=== PATIENT | female | born 1995 | race Caucasian/White ===

== ENCOUNTER 2017-11-01 09:27 | Emergency (ER) | payer OTHER ==
[~2017-11-01] VITALS: Ht 160 cm; Wt 81.8 kg
[2017-11-01 09:59] LABS: COLLECTION METHOD CATHETER
[2017-11-01 10:04] LABS: BASO % 0.2 % (0.0-2.0); EOS % 0.3 % (0-4.0); GRAN # 9.5 (1.4-6.5); HEMATOCRIT 37.1 % (37.0-47.0); HEMOGLOBIN 12.4 g/dl (12.5-16.0); LYMPH # 1.2 (1.2-3.4); LYMPH % 10.4 % (20.0-51.0); MEAN CELL VOLUME 84 fl (80.0-100.0); MEAN CORPUSCULAR HEMOGLOBIN 28 pg (27.0-31.0); MEAN CORPUSCULAR HGB CONC 33 g/dl (33.0-37.0); MEAN PLATELET VOLUME 9.6 fl (7.4-10.4); MONO # 0.7 (0.1-0.6); MONO % 5.8 % (1.7-9.3); PLATELET COUNT 283 K/mm3 (130-400); RED BLOOD COUNT 4.41 M/mm3 (4.10-5.30); REDCELL DISTRIBUTION WIDTH-CV 12.1 % (11.5-14.5)
[2017-11-01 10:05] LABS: PH 5 (5-8); SQUAMOUS EPITHELIAL 0-2 /hpf; URINE APPEARANCE Clear; URINE BACTERIA None Seen /hpf; URINE BILIRUBIN Negative (NEGATIVE); URINE BLOOD Negative (NEGATIVE); URINE COLOR Yellow; URINE GLUCOSE Negative (NEGATIVE); URINE KETONE Negative (NEGATIVE); URINE LEUKOCYTE ESTERASE 1+ (NEGATIVE); URINE NITRATE Negative (NEGATIVE); URINE PROTEIN(semi-quant) Negative (NEGATIVE); URINE RBC 0-2 /hpf
[2017-11-01 10:26] LABS: ALBUMIN 4.3 gm/dL (3.5-5.0); BILIRUBIN,TOTAL 0.4 mg/dL (0.0-1.0); CALCIUM 9.1 mg/dL (8.4-10.2); CREATININE, serum 0.62 mg/dL (0.52-1.25); POTASSIUM 3.8 mmol/L (3.4-5.0); TOTAL PROTEIN 7.7 gm/dL (6.4-8.2)
[2017-11-01 11:20] VITALS: BP 115/79; PULSE 91; TEMP 96.9
== END 2017-11-01 11:29 | disposition home or self-care (01) ==
LOC: COL.ER 09:27
PROVIDERS: Family Medicine
DX: O26.891 Other specified pregnancy related conditions, first trimester (principal); R55 Syncope and collapse; E86.0 Dehydration; Z3A.00 Weeks of gestation of pregnancy not specified
CPT/HCPCS: J7030

== ENCOUNTER 2017-11-25 13:08 | Emergency (ER) | payer OTHER ==
[~2017-11-25] VITALS: Ht 157.5 cm; Wt 84.1 kg
[2017-11-25 13:13] VITALS: TEMP 98.6
[2017-11-25 13:40] LABS: COLLECTION METHOD CLEAN CATCH
[2017-11-25 13:43] LABS: BASO % 0.3 % (0.0-2.0); EOS # 0.1 (0.0-0.7); EOS % 0.7 % (0-4.0); GRAN # 4.6 (1.4-6.5); GRAN % 63.6 % (42.2-75.2); HEMATOCRIT 36.8 % (37.0-47.0); HEMOGLOBIN 12.3 g/dl (12.5-16.0); LYMPH % 28.4 % (20.0-51.0); MEAN CELL VOLUME 83 fl (80.0-100.0); MEAN CORPUSCULAR HEMOGLOBIN 28 pg (27.0-31.0); MEAN CORPUSCULAR HGB CONC 33 g/dl (33.0-37.0); MEAN PLATELET VOLUME 9.6 fl (7.4-10.4); MONO # 0.5 (0.1-0.6); MONO % 6.6 % (1.7-9.3); PLATELET COUNT 298 K/mm3 (130-400); RED BLOOD COUNT 4.46 M/mm3 (4.10-5.30); REDCELL DISTRIBUTION WIDTH-CV 12.2 % (11.5-14.5)
[2017-11-25] MEDS ORDERED: SE TAN PLUS PO (13:47)
[2017-11-25 13:48] LABS: MUCOUS Present /lpf; PH 5 (5-8); URINE APPEARANCE Cloudy; URINE BACTERIA Rare /hpf; URINE BILIRUBIN Negative (NEGATIVE); URINE BLOOD Negative (NEGATIVE); URINE COLOR Yellow; URINE GLUCOSE Negative (NEGATIVE); URINE KETONE Negative (NEGATIVE); URINE LEUKOCYTE ESTERASE 3+ (NEGATIVE); URINE NITRATE Negative (NEGATIVE); URINE PROTEIN(semi-quant) Negative (NEGATIVE)
[2017-11-25 13:59] LABS: ALBUMIN 4.4 gm/dL (3.5-5.0); BILIRUBIN,TOTAL 0.3 mg/dL (0.0-1.0); CALCIUM 9.3 mg/dL (8.4-10.2); CREATININE, serum 0.54 mg/dL (0.52-1.25); POTASSIUM 3.6 mmol/L (3.4-5.0); TOTAL PROTEIN 7.8 gm/dL (6.4-8.2)
[2017-11-25] MEDS ORDERED: VITAMIN B650 MG PO (14:45)
[2017-11-25] MEDS ORDERED: ZOFRAN ODT4 MG PO (14:45)
[2017-11-25] MEDS ORDERED: UNISOM25 MG PO (14:45)
[2017-11-25 15:00] VITALS: BP 116/65; PULSE 79
== END 2017-11-25 15:01 | disposition home or self-care (01) ==
LOC: COL.ER 13:08
PROVIDERS: Emergency Medicine
DX: O21.9 Vomiting of pregnancy, unspecified (principal); Z3A.01 Less than 8 weeks gestation of pregnancy
CPT/HCPCS: J2405; J2765; J7030

== ENCOUNTER 2018-01-20 18:39 | Emergency (ER) | payer OTHER, MEDICAID ==
[~2018-01-20] VITALS: Ht 157.5 cm; Wt 77.3 kg
[~2018-01-20 18:39] MED LIST: SE TAN PLUS PO; UNISOM25 MG PO; VITAMIN B650 MG PO; ZOFRAN ODT4 MG PO
[2018-01-20 18:44] VITALS: BP 137/75; TEMP 97.7
[2018-01-20 19:27] LABS: COLLECTION METHOD CLEAN CATCH
[2018-01-20 19:35] LABS: MUCOUS Present /lpf; PH 5 (5-8); URINE APPEARANCE Hazy; URINE BACTERIA Rare /hpf; URINE BILIRUBIN Negative (NEGATIVE); URINE BLOOD Negative (NEGATIVE); URINE COLOR Yellow; URINE GLUCOSE Negative (NEGATIVE); URINE KETONE Trace (NEGATIVE); URINE LEUKOCYTE ESTERASE Trace (NEGATIVE); URINE NITRATE Negative (NEGATIVE); URINE PROTEIN(semi-quant) 1+ (NEGATIVE); URINE UROBILINOGEN >=4.0 mg/dL (NEGATIVE)
[2018-01-20 19:49] LABS: BASO % 0.3 % (0.0-2.0); EOS % 0.4 % (0-4.0); GRAN % 68.9 % (42.2-75.2); HEMOGLOBIN 12.2 g/dl (12.5-16.0); LYMPH # 1.7 (1.2-3.4); LYMPH % 24.2 % (20.0-51.0); MEAN CELL VOLUME 83 fl (80.0-100.0); MEAN CORPUSCULAR HEMOGLOBIN 28 pg (27.0-31.0); MEAN CORPUSCULAR HGB CONC 33 g/dl (33.0-37.0); MEAN PLATELET VOLUME 10.2 fl (7.4-10.4); MONO # 0.4 (0.1-0.6); MONO % 5.8 % (1.7-9.3); PLATELET COUNT 236 K/mm3 (130-400); RED BLOOD COUNT 4.39 M/mm3 (4.10-5.30); REDCELL DISTRIBUTION WIDTH-CV 12.1 % (11.5-14.5)
[2018-01-20 19:53] LABS: HEMATOCRIT 36.6 % (37.0-47.0)
[2018-01-20 20:00] LABS: ALBUMIN 4.3 gm/dL (3.5-5.0); BILIRUBIN,TOTAL 0.5 mg/dL (0.0-1.0); CALCIUM 9.5 mg/dL (8.4-10.2); CREATININE, serum 0.45 mg/dL (0.52-1.25); POTASSIUM 3.6 mmol/L (3.4-5.0); TOTAL PROTEIN 7.9 gm/dL (6.4-8.2)
[2018-01-20] MEDS ORDERED: NORCO 325 MG-51 TAB PO (20:44)
[2018-01-20 21:15] VITALS: PULSE 63
== END 2018-01-20 21:15 | disposition home or self-care (01) ==
LOC: COL.ER 18:39
PROVIDERS: Emergency Medicine
DX: O26.892 Other specified pregnancy related conditions, second trimester (principal); O9A.212 Injury, poisoning and certain other consequences of external causes complicating pregnancy, second trimester; S20.219A Contusion of unspecified front wall of thorax, initial encounter; S39.011A Strain of muscle, fascia and tendon of abdomen, initial encounter; Z3A.15 15 weeks gestation of pregnancy; Z98.890 Other specified postprocedural states
CPT/HCPCS: A9284; J2270; J2405; J7030

== ENCOUNTER 2018-01-27 16:24 | Emergency (ER) | payer OTHER, MEDICAID ==
[~2018-01-27] VITALS: Ht 157.5 cm; Wt 81.8 kg
[~2018-01-27 16:24] MED LIST changes: +NORCO 325 MG-51 TAB PO
[2018-01-27 16:26] VITALS: TEMP 97.9
[2018-01-27 16:53] LABS: COLLECTION METHOD CLEAN CATCH
[2018-01-27 17:03] LABS: MUCOUS Present /lpf; PH 6 (5-8); URINE APPEARANCE Hazy; URINE BACTERIA Rare /hpf; URINE BILIRUBIN Negative (NEGATIVE); URINE BLOOD Negative (NEGATIVE); URINE COLOR Yellow; URINE GLUCOSE Negative (NEGATIVE); URINE KETONE Negative (NEGATIVE); URINE LEUKOCYTE ESTERASE Negative (NEGATIVE); URINE NITRATE Negative (NEGATIVE); URINE PROTEIN(semi-quant) Negative (NEGATIVE); URINE RBC 0-2 /hpf
[2018-01-27 17:34] LABS: BASO % 0.3 % (0.0-2.0); EOS % 0.4 % (0-4.0); GRAN % 65.5 % (42.2-75.2); HEMOGLOBIN 11.6 g/dl (12.5-16.0); LYMPH % 25.7 % (20.0-51.0); MEAN CELL VOLUME 83 fl (80.0-100.0); MEAN CORPUSCULAR HEMOGLOBIN 28 pg (27.0-31.0); MEAN CORPUSCULAR HGB CONC 34 g/dl (33.0-37.0); MEAN PLATELET VOLUME 10.2 fl (7.4-10.4); MONO # 0.6 (0.1-0.6); MONO % 7.7 % (1.7-9.3); PLATELET COUNT 243 K/mm3 (130-400); RED BLOOD COUNT 4.12 M/mm3 (4.10-5.30); REDCELL DISTRIBUTION WIDTH-CV 12.3 % (11.5-14.5)
[2018-01-27 17:35] LABS: HEMATOCRIT 34.2 % (37.0-47.0)
[2018-01-27 17:44] LABS: ALBUMIN 4.1 gm/dL (3.5-5.0); BILIRUBIN,TOTAL 0.2 mg/dL (0.0-1.0); CALCIUM 9.2 mg/dL (8.4-10.2); CREATININE, serum 0.41 mg/dL (0.52-1.25); TOTAL PROTEIN 7.3 gm/dL (6.4-8.2)
[2018-01-27 18:14] VITALS: BP 107/59; PULSE 69
== END 2018-01-27 18:14 | disposition home or self-care (01) ==
LOC: COL.ER 16:24
PROVIDERS: Family Medicine
DX: O46.92 Antepartum hemorrhage, unspecified, second trimester (principal); O26.892 Other specified pregnancy related conditions, second trimester; R10.9 Unspecified abdominal pain; Z3A.16 16 weeks gestation of pregnancy
CPT/HCPCS: J7030

== ENCOUNTER 2018-01-31 08:31 | Emergency (ER) | payer OTHER, MEDICAID ==
[~2018-01-31] VITALS: Ht 157.5 cm; Wt 83.6 kg
[2018-01-31 08:35] VITALS: TEMP 98.4
[2018-01-31 09:08] LABS: COLLECTION METHOD CLEAN CATCH
[2018-01-31 09:13] LABS: MUCOUS Present /lpf; PH 8 (5-8); URINE APPEARANCE Clear; URINE BACTERIA Occasional /hpf; URINE BILIRUBIN Negative (NEGATIVE); URINE BLOOD Negative (NEGATIVE); URINE COLOR Yellow; URINE GLUCOSE Negative (NEGATIVE); URINE KETONE Negative (NEGATIVE); URINE LEUKOCYTE ESTERASE Trace (NEGATIVE); URINE NITRATE Negative (NEGATIVE); URINE PROTEIN(semi-quant) Negative (NEGATIVE); URINE RBC None Seen /hpf; URINE UROBILINOGEN Negative (NEGATIVE)
[2018-01-31 09:26] LABS: BASO % 0.3 % (0.0-2.0); EOS % 0.5 % (0-4.0); GRAN # 4.4 (1.4-6.5); GRAN % 71.5 % (42.2-75.2); HEMOGLOBIN 11.6 g/dl (12.5-16.0); LYMPH # 1.4 (1.2-3.4); LYMPH % 21.9 % (20.0-51.0); MEAN CELL VOLUME 84 fl (80.0-100.0); MEAN CORPUSCULAR HEMOGLOBIN 28 pg (27.0-31.0); MEAN CORPUSCULAR HGB CONC 34 g/dl (33.0-37.0); MONO # 0.3 (0.1-0.6); MONO % 5.5 % (1.7-9.3); PLATELET COUNT 230 K/mm3 (130-400); RED BLOOD COUNT 4.08 M/mm3 (4.10-5.30); REDCELL DISTRIBUTION WIDTH-CV 12.5 % (11.5-14.5)
[2018-01-31 09:36] LABS: ALBUMIN 4.1 gm/dL (3.5-5.0); BILIRUBIN,TOTAL 0.3 mg/dL (0.0-1.0); CALCIUM 9.3 mg/dL (8.4-10.2); CREATININE, serum 0.44 mg/dL (0.52-1.25); HEMATOCRIT 34.1 % (37.0-47.0); POTASSIUM 3.8 mmol/L (3.4-5.0); TOTAL PROTEIN 7.1 gm/dL (6.4-8.2)
[2018-01-31] MEDS ORDERED: IRON TABLETS325 MG PO (10:14)
[2018-01-31 12:28] VITALS: BP 107/56; PULSE 68
== END 2018-01-31 12:27 | disposition home or self-care (01) ==
LOC: COL.ER 08:31
PROVIDERS: Emergency Medicine; Nurse Practitioner Primary Care
DX: O26.892 Other specified pregnancy related conditions, second trimester (principal); M54.5 Low back pain; Z3A.16 16 weeks gestation of pregnancy; Z98.890 Other specified postprocedural states
CPT/HCPCS: J2405; J7030

== ENCOUNTER 2018-03-31 14:38 | Outpatient (CLI) | payer OTHER, MEDICAID ==
[~2018-03-31] VITALS: Ht 160 cm; Wt 82.3 kg
[2018-03-31 15:08] VITALS: BP 118/60; PULSE 78; TEMP 97.7
== END 2018-03-31 15:10 | disposition home or self-care (01) ==
LOC: LDRO 14:38
DX: O36.8120 Decreased fetal movements, second trimester, not applicable or unspecified (principal); Z3A.25 25 weeks gestation of pregnancy

== ENCOUNTER → 2018-03-31 | Emergency (ER) | payer OTHER, MEDICAID ==
[~2018-03-31] MED LIST changes: +IRON TABLETS325 MG PO
== END ==
LOC: COL.ER 14:30
DX: Z72.9 Problem related to lifestyle, unspecified (principal)

== ENCOUNTER 2018-04-23 20:32 | Outpatient (CLI) | payer OTHER, MEDICAID ==
[~2018-04-23] VITALS: Ht 160 cm; Wt 85.9 kg
--- NOTE | 2018-04-23 20:40 | NUR ---
G1 28 weeks 3 days arrives to unit ambulatory with complaint of decreased movement and cramping in back. Pt reports she hasn't really felt baby move since midnight last night. Reports cramping in her back that comes and goes and sometimes wraps around to her abdomen. Pt denies vaginal bleeding or LOF. Pt changed into clean gown. Oriented to room. EFM and toco explained and applied. Vital signs obtained. Admission assessment started.
[2018-04-23 21:00] VITALS: BP 114/64; PULSE 77; TEMP 98.8
--- NOTE | 2018-04-23 21:00 | NUR ---
SVE closed/thick/high. Pt repositioned to high fowlers for comfort. Discussed kick counts and really focusing on feeling baby move.
--- NOTE | 2018-04-23 21:15 | NUR ---
Pt reports feeling movement she just feels it in a different spot now.
[2018-04-23 21:30] VITALS: BP 115/64; PULSE 72
[2018-04-23 21:36] LABS: COLLECTION METHOD CLEAN CATCH
[2018-04-23 21:42] LABS: MUCOUS Present /lpf; PH 6 (5-8); SQUAMOUS EPITHELIAL 0-2 /hpf; URINE APPEARANCE Clear; URINE BACTERIA Rare /hpf; URINE BILIRUBIN Negative (NEGATIVE); URINE BLOOD Negative (NEGATIVE); URINE COLOR Yellow; URINE GLUCOSE Negative (NEGATIVE); URINE KETONE Negative (NEGATIVE); URINE LEUKOCYTE ESTERASE Negative (NEGATIVE); URINE NITRATE Negative (NEGATIVE); URINE PROTEIN(semi-quant) Negative (NEGATIVE); URINE RBC 0-2 /hpf; URINE UROBILINOGEN Negative (NEGATIVE); URINE WBC 0-2 /hpf
[2018-04-23 22:00] VITALS: BP 110/59; PULSE 71
--- NOTE | 2018-04-23 22:00 | NUR ---
Pt has felt baby move multiple times since getting here. Feels comfortable going home at this point. Dr. Mendosa ok to discharge, see physician notification. Discharge instructions and return precautions reviewed with patient, pt verbalized understanding. Pt seen ambulating off unit with significant other.
== END 2018-04-23 22:00 | disposition home or self-care (01) ==
LOC: LDRO 20:32
PROVIDERS: Obstetrics & Gynecology
DX: O36.8130 Decreased fetal movements, third trimester, not applicable or unspecified (principal); Z3A.28 28 weeks gestation of pregnancy

== ENCOUNTER 2018-05-20 13:00 | Outpatient (CLI) | payer OTHER, MEDICAID ==
[~2018-05-20] VITALS: Ht 160 cm; Wt 89.5 kg
--- NOTE | 2018-05-20 13:00 | NUR ---
Patient arrives ambulatory with FOB with complaints of a fall at 1000 this morning. Patient states she slipped on ice and hit the right side of her abdomen on a stair outside. Patient states she noticed some "light spotting for 45 minutes after but it's gone now". Patient reports vaginal pressure but no cramping or contractions. Reports normal movement. Changes into gown, EFM explained and placed. VSS. SVE by this RN closed/thick/high. No spotting noted on exam. Patient repositioned WL. Assessment completed. notified, reviewed patient complaint and assessment. Reviewed SVE, FHR strip/ctx pattern so far, and vitals. Orders to monitor patient over two hours and update physician at that time. No further orders.
[2018-05-20 14:00] VITALS: BP 123/71; PULSE 73; TEMP 98
[2018-05-20 14:42] VITALS: BP 105/56; PULSE 72
--- NOTE | 2018-05-20 14:49 | NUR ---
1450- Patient given discharge instructions. Reviewed labor precautions and kick counts. Patient denies questions and leaves ambulatory.
== END 2018-05-20 14:50 | disposition home or self-care (01) ==
LOC: LDRO 13:00 → LDR 13:00 → LDRO 14:50
DX: O26.893 Other specified pregnancy related conditions, third trimester (principal); W19.XXXA Unspecified fall, initial encounter; Z3A.32 32 weeks gestation of pregnancy
CPT/HCPCS: OP

== ENCOUNTER 2018-06-16 08:37 | Outpatient (CLI) | payer OTHER, MEDICAID ==
--- NOTE | 2018-06-16 08:40 | NUR ---
Presents to labor and delivery. States hasnt felt baby since yesterday at 4 p.m. heart monitor on, heart rate 122. Denies contractions. Assessment done, questions offered and answered.
[2018-06-16 08:50] VITALS: BP 124/79; PULSE 73; TEMP 98
--- NOTE | 2018-06-16 09:55 | NUR ---
Discharge instructions given, verbalizes understanding. Dismissed to home with significant other, alert, ambulatory, stable.
== END 2018-06-16 09:55 | disposition home or self-care (01) ==
LOC: LDRO 08:37
DX: O36.8130 Decreased fetal movements, third trimester, not applicable or unspecified (principal); Z3A.36 36 weeks gestation of pregnancy

== ENCOUNTER 2018-07-13 09:32 | Inpatient (IN) | payer OTHER, MEDICAID ==
[2018-07-13] VITALS (50 sets, daily range): BP systolic 108–154; BP diastolic 55–85; PULSE 62–105; TEMP 97.8–98.9
[~2018-07-13] VITALS: Ht 157.5 cm; Wt 92.3 kg
--- NOTE | 2018-07-13 09:35 | NUR ---
Pt arrives on unit ambulatory for possible SROM at 0700. G1L0 at 40.0 weeks gestation. Changed into clean gown. EFM and toco applied. Denies vaginal bleeding, regular contractions and reports GFM. SVE per Arik Gavin RN / with light meconium fluid. Admission assessment completed. Dr. Mccartney notified. Orders to start pitocin. Pt updated on POC. Call light within reach. Bed locked in low position.
--- NOTE | 2018-07-13 10:15 | NUR ---
1015-RECIEVED REPORT FROM MAICOL ELIZALDE CONSENTS REVIEWED AND SIGNED. 1040-IV TO RIGHT FOREARM BY MAICOL JIMENEZ BLOOD COLLECTED AND SENT TO LAB, LR INFUSING. 1045-PIT STARTED PER MD ORDER AND PROTOCOL. 1055-PATIENT DESIRES TO BE OUT OF BED. UP TO BB. DIFFICULTY TRACING FHR DUE TO HABITUS AND POSITIONING. RN REMAINS AT BEDSIDE. 1105-FHR DOPPLER CHANGED OUT, CONTINUED DIFFICULTY TRACING FHR. 1110-PATIENT STANDING AT BEDSIDE. RN FREQUENTLY ADJUSTS EFM. 1113-PATIENT TO ROCKING CHAIR AT BEDSIDE. 1156-PATIENT UP TO BATHROOM. 1201-PATIENT RETURNS TO ROCKING CHAIR, DIFFICULTY TRACING FHR, RN ADJUSTS EFM FREQUENTLY 1208-PATIENT TO BED LL
[2018-07-13 11:58] LABS: BASO % 0.2 % (0.0-2.0); EOS % 0.4 % (0-4.0); GRAN # 7.5 (1.4-6.5); GRAN % 78.6 % (42.2-75.2); HEMOGLOBIN 11.9 g/dl (12.5-16.0); LYMPH # 1.4 (1.2-3.4); LYMPH % 14.6 % (20.0-51.0); MEAN CELL VOLUME 85 fl (80.0-100.0); MEAN CORPUSCULAR HEMOGLOBIN 28 pg (27.0-31.0); MEAN CORPUSCULAR HGB CONC 33 g/dl (33.0-37.0); MEAN PLATELET VOLUME 12.1 fl (7.4-10.4); MONO # 0.6 (0.1-0.6); MONO % 5.8 % (1.7-9.3); PLATELET COUNT 195 K/mm3 (130-400); RED BLOOD COUNT 4.23 M/mm3 (4.10-5.30); REDCELL DISTRIBUTION WIDTH-CV 13.2 % (11.5-14.5)
[2018-07-13 12:00] LABS: HEMATOCRIT 35.9 % (37.0-47.0)
--- NOTE | 2018-07-13 12:40 | NUR ---
1240-DR. VILLA ON UNIT REVIEWS FHR MONITOR AND STRIP 1245-MD IN TO SEE PATIENT, REVIEWS PLAN OF CARE WITH PATIENT. SVE /-3 SANG CARE PROVIDED. REPOSITIONED BACK WL.
--- NOTE | 2018-07-13 14:49 | NUR ---
1449-UPDATED MD ON PATIENT AND SVE /2, ORDERS TO CONTINUE WITH PITCOCIN PER PROTOCOL UP TO MAX 40MU/MIN, SEE PHYSICIAN NOTIFICATION. 1502-IV STADOL ADMINISTERED PER MD ORDER, SEE EMAR PATIENT REPORTS "I FEEL LIGHTHEADED" VSS, BP 121/66 MATERNAL HR 65. REPOSITIONED RL AND PUT HEAD BACK. PATIENT REPORTS " ITS GETTING BETTER."
--- NOTE | 2018-07-13 15:33 | NUR ---
1533-Mike LINN CRNA NOTIFIED OF PATIENTS REQUEST FOR EPIDURAL. IVF BOLUS 1546-GRAYSON RUIZ TO PATIENT ROOM. 1550-PATIENT SITTING UP ON BEDSIDE FOR EPIDURAL PLACMENT, DIFFICULTY TRACING FHR, RN FREQUENTLY READJUSTING EFM. PIT PAUSED. 1555-SINGLE SHOT ADMINISTERED, VSS, SEE FLOW RECORD. 1600-PATIENT REPOSITIONED RL, PIT RESUMED 1622-SVE 580/-1, VARIABLE DECEL IN FHR DOWN TO 90BPM, SPONTANEOUS RETURN TO BASELINE 1625-FSE PLACED, FHR DECEL FOLLOWING PLACEMENT DOWN TO 90BPM WITH SLOW RETURN TO BASELINE OVER 2 MIN. 1630-VARELA TO DD, CLEAR YELLOW URINE. PATIENT LL, IVF BOLUS OXYGEN VIA OXYMASK AT 10L/MIN. 1634-DR. VILLA UPDATED ON SVE AND FHR MONITOR, REQUESTED MD TO EVALUATE STRIP, SEE PHYSICIAN NOTIFICATION. 1649-DR. VILLA TO PATIENT ROOM 1651-SVE BY 80/-1 IUPC PLACED BY MD. ORDERS TO RESUME PIT CUT IN HALF AT 10MU/MIN. 1653-PITOCIN STARTED PER MD ORDER AT 10MU/MIN. REPOSITIONED WL. MD REMAINS ON UNIT.
--- NOTE | 2018-07-13 17:25 | NUR ---
1725- ON UNIT REVIEWS FHR MONITOR. ORDERS TO CONTINUE WITH PITOCIN ON AT 10MU/MIN.
--- NOTE | 2018-07-13 17:54 | NUR ---
175-DR. VILLA TO PATIENT ROOM. REVIEWS PLAN OF CARE. SVE /0, BLOODY SHOW. REPOSITIONED WR. FHR DECEL DOWN TO 80BPM, SLOW RETURN TO 105BPM REPOSITIOINED LL, 1800-IVF BOLUS, OXYGEN VIA OXYMASK, MD REMAINS IN ROOM. 1801- + SCALP STIM BY . REPOSITIONED BACK LL, SANG CARE PROVIDED. 1814-REPORTED OFF TO MAICOL WATTERS WHO WILL ASSUME CARE OF PATIENT AT THIS TIME.
--- NOTE | 2018-07-13 19:40 | NUR ---
Dr. Mccartney at bedside for SVE. Complete and +1. Verbal orders to start pushing with patient.
--- NOTE | 2018-07-13 19:45 | NUR ---
1944 - Pt instructed on pushing techniques, pt verbalized understanding. Pt positioned into footplates, initial push at this time. 1954 - Mcmillan catheter removed. 10 mL removed from balloon, 800 mL clear, yellow urine. Pt tolerated well.
--- NOTE | 2018-07-13 20:05 | NUR ---
2004 - Pt pushing well with contractions. Dr. Mccartney at bedside to evaluate. Verbal orders to increase pitocin to 12 mL/hr. 2019 - Dr. Mccartney remains at bedside pushing with patient. IUPC and scalp electrode removed. External monitors on. Variable decelerations noted with pushing down to 70 bpm with spontaneous return to baseline. Moderate variability. 2029 - RN handholding monitor. Variable decelerations audible after pushing. Dr. Mccartney remains at bedside. Episiotomy cut by Dr. Mccartney. Nursery at bedside. 2037 - Verbal orders from Dr. Mccartney to increase pitocin to 14 mL/hr. RN continues to handhold monitor. Difficulty monitoring FHR during pushes. FHR in 80s after pushing with spontaneous return to baseline. 2039 - Spontaneous vaginal delivery of viable infant boy. Nuchal cord x [address] Mccartney. Infant placed on mothers abdomen, care of infant assumed to Nursery RN Mango. Cord clamped by Dr. Mccartney and cut by FOB. Cord blood obtained. Cord gases obtained. Pitocin off. 2045 - Spontaneous delivery of intact placenta. On observation cord and placenta mec stained. Fundal massage started, uterus boggy. Verbal orders to give methergine IM. Dr. Mccartney repairing second degree laceration. Pitocin started at 333 mL/hr per protocol. 2049 - Uterine tone improving. Fundal massage by this RN. 2054 - Dr. Mccartney finishing repair. Pericare provided. New chux under patient. Ice pack applied to perineum. Epidural off. Pt repositioned into high fowlers.
--- NOTE | 2018-07-13 23:20 | NUR ---
2320 IV TO INT. EPID CATH REMOVED. UP TO BR WITH ASSIST. VOIDED 300CC. PERICARE DONE. AMB TO 215 AND SHO WELL
[2018-07-14 01:58] VITALS: BP 129/74; PULSE 97; TEMP 97.6
[2018-07-14 07:50] VITALS: BP 114/70; PULSE 83; TEMP 98.3
--- NOTE | 2018-07-14 09:43 | NUR ---
Initial visit; Parents thanked Court Monitor for offering congratulations and God's blessings for the of their son. Court Monitor thanked them for choosing our hospital.
[2018-07-14 11:25] VITALS: BP 110/57; PULSE 102; TEMP 97.7
[2018-07-14 16:43] VITALS: BP 117/67; PULSE 98; TEMP 98.7
[2018-07-14 20:00] VITALS: BP 116/70; PULSE 87; TEMP 98.3
[2018-07-15 08:00] VITALS: BP 124/79; PULSE 100; TEMP 98.4
[2018-07-15] MEDS ORDERED: IBU600 MG PO (08:50)
== END 2018-07-15 13:30 | disposition home or self-care (01) | DRG 807 ==
LOC: LDRO 09:32 → LDR 10:09 → OB 10:09
PROVIDERS: ADMIT Obstetrics & Gynecology
PROC: 10E0XZZ Delivery of Products of Conception, External Approach (ICD-10-PCS; principal; 2018-07-13)
PROC: 0W8NXZZ Division of Female Perineum, External Approach (ICD-10-PCS; 2018-07-13)
DX: O77.0 Labor and delivery complicated by meconium in amniotic fluid (principal); Z37.0 Single live birth; Z3A.40 40 weeks gestation of pregnancy; O69.81X0 Labor and delivery complicated by cord around neck, without compression, not applicable or unspecified; O76 Abnormality in fetal heart rate and rhythm complicating labor and delivery; O75.89 Other specified complications of labor and delivery; O99.02 Anemia complicating childbirth; O99.214 Obesity complicating childbirth; Z88.2 Allergy status to sulfonamides
CPT/HCPCS: J0595; J2210; J2590; J2795; J7120

== ENCOUNTER 2018-08-08 23:36 | Emergency (ER) | payer OTHER, MEDICAID ==
[~2018-08-08] VITALS: Ht 157.5 cm; Wt 86.4 kg
[~2018-08-08 23:36] MED LIST changes: +IBU600 MG PO
[2018-08-08] MEDS ORDERED: PROZAC 10MG10 MG PO (23:52)
[2018-08-09 00:16] LABS: COLLECTION METHOD CLEAN CATCH
[2018-08-09 00:45] LABS: BASO % 0.3 % (0.0-2.0); EOS % 0.2 % (0-4.0); GRAN # 4.7 (1.4-6.5); GRAN % 78.3 % (42.2-75.2); HEMOGLOBIN 11.2 g/dl (12.5-16.0); LYMPH # 0.8 (1.2-3.4); LYMPH % 13.8 % (20.0-51.0); MEAN CELL VOLUME 85 fl (80.0-100.0); MEAN CORPUSCULAR HEMOGLOBIN 28 pg (27.0-31.0); MEAN CORPUSCULAR HGB CONC 33 g/dl (33.0-37.0); MONO # 0.4 (0.1-0.6); MONO % 7.1 % (1.7-9.3); PLATELET COUNT 227 K/mm3 (130-400); RED BLOOD COUNT 4.08 M/mm3 (4.10-5.30); REDCELL DISTRIBUTION WIDTH-CV 12.6 % (11.5-14.5)
[2018-08-09 00:46] LABS: HEMATOCRIT 34.5 % (37.0-47.0)
[2018-08-09 00:52] LABS: MUCOUS Present /lpf; PH 5 (5-8); URINE APPEARANCE Clear; URINE BACTERIA None Seen /hpf; URINE BILIRUBIN Negative (NEGATIVE); URINE BLOOD 1+ (NEGATIVE); URINE COLOR Yellow; URINE GLUCOSE Negative (NEGATIVE); URINE KETONE Negative (NEGATIVE); URINE LEUKOCYTE ESTERASE 1+ (NEGATIVE); URINE NITRATE Negative (NEGATIVE); URINE PROTEIN(semi-quant) Negative (NEGATIVE); URINE UROBILINOGEN Negative (NEGATIVE)
[2018-08-09 00:53] LABS: BILIRUBIN,TOTAL 0.3 mg/dL (0.0-1.0); CALCIUM 8.9 mg/dL (8.4-10.2); CREATININE, serum 0.81 (0.52-1.25); POTASSIUM 3.6 mmol/L (3.4-5.0); TOTAL PROTEIN 7.4 gm/dL (6.4-8.2)
[2018-08-09 01:21] LABS: C-REACTIVE PROTEIN 4.7 mg/dL (0.0-0.9)
[2018-08-09] MEDS ORDERED: CEFTIN500 MG PO (03:07)
[2018-08-09 03:25] VITALS: BP 98/65; PULSE 82; TEMP 97.9
== END 2018-08-09 03:35 | disposition home or self-care (01) ==
LOC: COL.ER 23:36
PROVIDERS: Nurse Practitioner
DX: R10.11 Right upper quadrant pain (principal); R10.31 Right lower quadrant pain; Z88.2 Allergy status to sulfonamides; Z88.1 Allergy status to other antibiotic agents
CPT/HCPCS: A4216; J0696; J1170; J2405; J7030; Q9967

== ENCOUNTER → 2018-09-27 | Outpatient (CLI) | payer OTHER, MEDICAID ==
[~2018-09-27] MED LIST changes: +CEFTIN500 MG PO; +PROZAC 10MG10 MG PO
== END ==
LOC: COL.RAD 08:36
DX: R10.11 Right upper quadrant pain (principal)
CPT/HCPCS: A9537

== ENCOUNTER 2019-11-05 18:06 | Observation (INO) | payer OTHER, BC, MEDICAID ==
[~2019-11-05] VITALS: Ht 160 cm; Wt 86.2 kg
[~2019-11-05 18:06] MED LIST changes: +PRENATAL; +TYLENOL 500MG500 MG PO
[2019-11-05 18:49] LABS: BASO % 0.3 % (0.0-2.0); EOS % 0.5 % (0-4.0); GRAN # 5.5 (1.4-6.5); GRAN % 74.7 % (42.2-75.2); HEMOGLOBIN 10.8 g/dl (12.5-16.0); LYMPH # 1.3 (1.2-3.4); LYMPH % 17.3 % (20.0-51.0); MEAN CELL VOLUME 89 fl (80.0-100.0); MEAN CORPUSCULAR HEMOGLOBIN 28 pg (27.0-31.0); MEAN CORPUSCULAR HGB CONC 32 g/dl (33.0-37.0); MEAN PLATELET VOLUME 10.6 fl (7.4-10.4); MONO # 0.5 (0.1-0.6); MONO % 6.8 % (1.7-9.3); PLATELET COUNT 215 K/mm3 (130-400); RED BLOOD COUNT 3.81 M/mm3 (4.10-5.30); REDCELL DISTRIBUTION WIDTH-CV 13.5 % (11.5-14.5)
[2019-11-05 18:50] LABS: HEMATOCRIT 33.9 % (37.0-47.0)
[2019-11-05 18:59] LABS: ALBUMIN 3.9 gm/dL (3.5-5.0); BILIRUBIN,TOTAL 0.4 mg/dL (0.0-1.0); CALCIUM 9.1 mg/dL (8.4-10.2); CREATININE, serum 0.4 (0.52-1.25); POTASSIUM 3.7 mmol/L (3.4-5.0); TOTAL PROTEIN 7.1 gm/dL (6.4-8.2)
--- NOTE | 2019-11-05 21:50 | NUR ---
PT ARRIVED PER W/C FROM ED, IS ALERT AND ORIENTED X4. HAS IVF INFUSING TO LEFT FOREARM WITHOUT REDNESS OR SWELLING. RATES PAIN 8/10 TO EPIGASTRIC AREA. DENIES NAUSEA. IS 30 WEEKS .
--- NOTE | 2019-11-05 22:17 | NUR ---
MEDICATED WITH IV DILAUDID 0.5MG AT THIS TIME. HAS OWN COMPUTER AT BEDSIDE. TAKES JELLO AND WATER AT THIS TIME.
[2019-11-05 23:24] VITALS: BP 115/47; PULSE 77; TEMP 98.4
[2019-11-06] VITALS (7 sets, daily range): BP systolic 90–115; BP diastolic 36–59; PULSE 65–83; TEMP 97.8–98.6
--- NOTE | 2019-11-06 00:55 | NUR ---
MEDICATED WITH IV DILAUDID 0.5MG FOR PAIN 7/10 TO UPPER BACK. TAKES JELLO ALSO, NO N/V SINCE ARRIVAL TO FLOOR.
--- NOTE | 2019-11-06 04:49 | NUR ---
MEDICATED WITH ZOFRAN 4MG IVP AND DILAUDID 0.5MG IVP FOR PAIN TO BACK AND MILD NAUSEA. VOIDING YELLOW URINE. HAS HAD NO EMESIS SINCE ADMISSION.
[2019-11-06 08:39] LABS: BASO % 0.2 % (0.0-2.0); EOS % 0.7 % (0-4.0); GRAN # 3.5 (1.4-6.5); LYMPH # 1.6 (1.2-3.4); LYMPH % 29.3 % (20.0-51.0); MEAN CELL VOLUME 90 fl (80.0-100.0); MEAN CORPUSCULAR HGB CONC 32 g/dl (33.0-37.0); MEAN PLATELET VOLUME 10.7 fl (7.4-10.4); MONO # 0.4 (0.1-0.6); MONO % 6.4 % (1.7-9.3); PLATELET COUNT 193 K/mm3 (130-400); RED BLOOD COUNT 3.09 M/mm3 (4.10-5.30); REDCELL DISTRIBUTION WIDTH-CV 13.8 % (11.5-14.5)
[2019-11-06 08:50] LABS: HEMATOCRIT 27.7 % (37.0-47.0); HEMOGLOBIN 8.8 g/dl (12.5-16.0); MEAN CORPUSCULAR HEMOGLOBIN 28 pg (27.0-31.0)
[2019-11-06 08:52] LABS: BILIRUBIN,TOTAL 0.3 mg/dL (0.0-1.0); CALCIUM 8.3 mg/dL (8.4-10.2); CREATININE, serum 0.4 (0.52-1.25); POTASSIUM 3.9 mmol/L (3.4-5.0); TOTAL PROTEIN 5.9 gm/dL (6.4-8.2)
--- NOTE | 2019-11-06 10:47 | NUR ---
ADA met with the patient to discuss discharge plan. The patient lives in [place] with her , Chaz (ph#[phone]), and son. She reports independence with ADLs and does not have any DME. The patient's primary care provider is SWATHI Casas and she receives her medications at [facility] in [place]. She reports no difficulties obtaining her meds. The patient does not have advanced directives and she was not interested in completing them at this time. The patient plans to return home with her family upon discharge. No additional needs at this time.
--- NOTE | 2019-11-06 11:04 | NUR ---
OB Physician in to see patient.
--- NOTE | 2019-11-06 11:13 | NUR ---
Patient states pain 10/19, requests to take half dose of dilaudid due to full dose causing lightheadedness
--- NOTE | 2019-11-06 12:15 | NUR ---
Dr. Ryan in to see patient.
--- NOTE | 2019-11-06 12:30 | NUR ---
First visit from the home office claims examiner. No needs right now.
[2019-11-06 15:15] LABS: HEMATOCRIT 29.1 % (37.0-47.0); HEMOGLOBIN 9.4 g/dl (12.5-16.0)
--- NOTE | 2019-11-06 16:53 | NUR ---
Pt arrives on unit via wheelchair from medical floor. Report given and care of pt assumed by this RN. LF IV infiltrated. IV restarted in RH hand. NS infusing per order. Admission assessment completed. VSS. Pt updated on POC. Oriented to room. Bed locked in low position. Call light within reach. No questions or conerns at this time.
--- NOTE | 2019-11-06 16:54 | NUR ---
Report called to OB nurse, patient transfered by wheelchair to OB.Room 222.
[2019-11-07] VITALS (13 sets, daily range): BP systolic 104–118; BP diastolic 48–61; PULSE 68–681; TEMP 98.1–98.9
--- NOTE | 2019-11-07 07:58 | NUR ---
0710- EFM and TOCO on and tracing. Frequent movement heard by this RN. 0758- Strip noted to be reactive. EFM and TOCO off.
--- NOTE | 2019-11-07 09:35 | NUR ---
Initial visit attempt; Physician with patient, Commercial Front Load Operator left prayer card and information regarding the availability of spiritual care at our hospital.
--- NOTE | 2019-11-07 14:55 | NUR ---
1455- Pt to LDR 2 from main PACU. VSS. EFM and TOCO on and tracing. Pt very uncomfortable, moaning in bed. Alert and oriented.
[2019-11-07] MEDS ORDERED: ROXICODONE 55 MG/TAB PO (14:57)
[2019-11-07] MEDS ORDERED: COLACE 100100 MG/CAP PO (14:58)
[2019-11-08 00:05] VITALS: BP 109/71; PULSE 74; TEMP 98.4
[2019-11-08 05:00] VITALS: BP 125/58; PULSE 69; TEMP 98.6
[2019-11-08 06:35] VITALS: BP 101/51; PULSE 56; TEMP 97.7
[2019-11-08 07:07] LABS: GRAN # 5.7 (1.4-6.5); GRAN % 77.1 % (42.2-75.2); LYMPH # 1.2 (1.2-3.4); LYMPH % 16.1 % (20.0-51.0); MEAN CELL VOLUME 90 fl (80.0-100.0); MEAN CORPUSCULAR HEMOGLOBIN 28 pg (27.0-31.0); MEAN CORPUSCULAR HGB CONC 32 g/dl (33.0-37.0); MEAN PLATELET VOLUME 10.7 fl (7.4-10.4); MONO # 0.4 (0.1-0.6); MONO % 5.9 % (1.7-9.3); PLATELET COUNT 205 K/mm3 (130-400); RED BLOOD COUNT 3.16 M/mm3 (4.10-5.30); REDCELL DISTRIBUTION WIDTH-CV 13.6 % (11.5-14.5)
[2019-11-08 07:08] LABS: HEMATOCRIT 28.4 % (37.0-47.0)
[2019-11-08 07:22] LABS: ALBUMIN 3.3 gm/dL (3.5-5.0); BILIRUBIN,TOTAL 0.2 mg/dL (0.0-1.0); CALCIUM 8.7 mg/dL (8.4-10.2); CREATININE, serum 0.41 (0.52-1.25); POTASSIUM 3.7 mmol/L (3.4-5.0); TOTAL PROTEIN 6.2 gm/dL (6.4-8.2)
[2019-11-08 07:29] LABS: PRE ALBUMIN 21.6 mg/dL (17.6-36.0)
--- NOTE | 2019-11-08 09:58 | NUR ---
0926- EFM and TOCO applied and tracing well. Pt denies cramping, UCs, VB, or LOF. Lots of movement noted by Pt and heard on monitor by this RN. 0958- Category I FHR tracing, no UCs noted on monitor. EFM and TOCO off.
[2019-11-08 12:10] VITALS: BP 110/70; PULSE 69; TEMP 98
== END 2019-11-08 14:55 | disposition home or self-care (01) ==
LOC: COL.ER 18:06 → SURG 20:34 → OB 20:34
PROVIDERS: Emergency Medicine; Registered Nurse; ADMIT Surgery
DX: O99.613 Diseases of the digestive system complicating pregnancy, third trimester (principal); K80.10 Calculus of gallbladder with chronic cholecystitis without obstruction; O25.13 Malnutrition in pregnancy, third trimester; O99.013 Anemia complicating pregnancy, third trimester; O99.343 Other mental disorders complicating pregnancy, third trimester; F41.9 Anxiety disorder, unspecified; F32.9 Major depressive disorder, single episode, unspecified; Z3A.30 30 weeks gestation of pregnancy; Z88.1 Allergy status to other antibiotic agents; Z88.2 Allergy status to sulfonamides; Z79.899 Other long term (current) drug therapy; O99.019 Anemia complicating pregnancy, unspecified trimester
CPT/HCPCS: G0378; J0330; J0702; J1170; J2405; J2704; J3010; J7030; J7120

== ENCOUNTER 2020-01-12 15:44 | Outpatient (CLI) | payer OTHER, BC, MEDICAID ==
[~2020-01-12] VITALS: Ht 160 cm; Wt 91.4 kg
[~2020-01-12 15:44] MED LIST changes: +COLACE 100100 MG/CAP PO; +ROXICODONE 55 MG/TAB PO
--- NOTE | 2020-01-12 15:55 | NUR ---
Pt arrives ambulatory on unit. States falling over dog at 0930 onto right side, directly on abdomen. Bloody show with "intense" cramping approximately 1-2 hours after fall. Denies LOF. Cramping and bloody show have subsided since fall, however, pt has only felt movement 3-4 times since fall. Changed into clean gown. EFM and toco applied. VSS. SVE per this RN /-2. EDU. Admission asssessment completed. Dr. Carroll notified. Orders for observation x 1 hour. Ice water given. Pt updated on POC. Bed locked in low position. Call light within reach. No questions or concerns at this time.
[2020-01-12 17:02] VITALS: BP 135/85; PULSE 104; TEMP 98.1
== END 2020-01-12 17:05 | disposition home or self-care (01) ==
LOC: LDRO 15:44
DX: O9A.213 Injury, poisoning and certain other consequences of external causes complicating pregnancy, third trimester (principal); Z3A.39 39 weeks gestation of pregnancy

== ENCOUNTER → 2020-01-19 | Outpatient (CLI) | payer OTHER, BC, MEDICAID | LOC: ZCOL.LAB 12:43 | DX: Z20.828 Contact with and (suspected) exposure to other viral communicable diseases (principal) ==

== ENCOUNTER 2020-01-23 07:04 | Inpatient (IN) | payer OTHER, BC, MEDICAID ==
[2020-01-23] VITALS (43 sets, daily range): BP systolic 99–167; BP diastolic 54–85; PULSE 56–99; TEMP 97.7–98.4
[~2020-01-23] VITALS: Ht 160 cm; Wt 91.8 kg
--- NOTE | 2020-01-23 07:13 | NUR ---
Patient arrives ambulatory with spouse for scheduled induction of labor. Patient denies contractions, ROM or vaginal bleeding. Reports decreased movement over the past week, but reports normal movement today. Patient changes into gown, EFM explained and placed. VS obtained. Reviewed plan of care for induction, patient agrees and denies questions. 0730- IV started in RW, labs obtained. LR infusing per protocol. Consents explained and signed. Denies questions. Assessment completed. Reactive, category 1 FHR strip obtained. Bartolo monitor replaced at 0740 and tracing improved. Reviewed Pitocin administration with patient, denies questions. 0745- Pitocin started at 2 mU per protocol and order. Will continue to monitor.
[2020-01-23 08:24] LABS: BASO % 0.3 % (0.0-2.0); EOS # 0.1 (0.0-0.7); EOS % 0.8 % (0-4.0); GRAN # 5.1 (1.4-6.5); GRAN % 69.6 % (42.2-75.2); HEMOGLOBIN 10.2 g/dl (12.5-16.0); LYMPH # 1.5 (1.2-3.4); LYMPH % 21.1 % (20.0-51.0); MEAN CELL VOLUME 85 fl (80.0-100.0); MEAN CORPUSCULAR HEMOGLOBIN 27 pg (27.0-31.0); MEAN CORPUSCULAR HGB CONC 32 g/dl (33.0-37.0); MEAN PLATELET VOLUME 10.9 fl (7.4-10.4); MONO # 0.5 (0.1-0.6); MONO % 7.4 % (1.7-9.3); PLATELET COUNT 244 K/mm3 (130-400); RED BLOOD COUNT 3.78 M/mm3 (4.10-5.30); REDCELL DISTRIBUTION WIDTH-CV 13.4 % (11.5-14.5)
--- NOTE | 2020-01-23 09:10 | NUR ---
0915- Mike Welch CORRECTIONS UNIT SUPERVISOR at beside. Patient assisted to sit on edge of bed for epidural placement. Difficulty tracing FHR continuously due to maternal position. RN remains at bedside adjusting EFM. 0923- Single shot via epidural by Mike Welch CRNA. Patient tolerates well, no adverse reactions noted. See anesthesia record. 0930- Patient repostioned WL and updated on plan of care. Safety reviewed. RN remains at bedside.
--- NOTE | 2020-01-23 09:12 | NUR ---
Patient breathing through contractions and requesting SVE. SVE 4-5/70/-1. Patient requesting epidural. Mike Welch CRNA notified. LR bolus infusing.
--- NOTE | 2020-01-23 10:50 | NUR ---
RN at bedside palpating abdomen and adjusting toco.
--- NOTE | 2020-01-23 13:45 | NUR ---
This RN received bedside report from Sarah MILIAN. Patient comfortable sitting in richard position and no needs at this time. 1440: FHR baseline 115-120bpm and subtle early decelerations noted. 1445: SVE-8/90/0 and patient left lateral with right leg resting in stirrup. 1505: Patient states she is feeling more pressure and SVE-9/90/0, patient right lateral and left leg resting in stirrup. Patient states even more pressure at this time. 1510: SVE-9-10/100/0. Difficulty tracing FHR and this RN at bedside adjusting monitor. Dr. Mccartney updated-see physicin notifications. 1520: SVE-10/100/0 and patient feeling like she needs to push. 1521: Dr. Mccartney called and notified. 1525: Mcmillan catheter removed and patient tolerates well. 1528: Patient begins to push slightly with each contraction. 1535: Dr. Mccartney at nurses station and patient begins to push with each contraction. 1542: Dr. Mccartney called into room for delivery. Patient prepped for vaginal delivery. Bed taken apart and pericare done. 1544: Patient continues to push with contractions. Difficulty tracing FHR and this RN adjusting monitor. Recurrent variables noted with patient pushing. 1548: Spontaneous vaginal delivery of viable female-head followed by body. bulb syringed and to patients abdomen and S.Austyn RN assumes care of infant. Cord clamped by physician and cut by FOB. Cord blood obtained. 1555: Spontaneous delivery of placenta and pitocin bolus started at 333mU per protocol. Dr. Mccartney performs fundal massage/bleeding moderate and orders methergine IM. 1559: Methergine IM given in left thigh and patient tolerates well. Fundal massage done/firm/bleeding WNL Dr. Mccartney begins to repair laceration Patient repositioned/pericare done/ice pack to perineum. Plan of care discussed.
--- NOTE | 2020-01-23 19:00 | NUR ---
Pt able to lift and hold each leg off of bed for 5 seconds. Pt positioned to sitting on edge of bed. Epidural catheter removed at this time. Tip smooth, blue, and intact. Pt able to ambulate to bathroom with 1 person assistance, still wobbly on left leg. Pt able to void 700 mL. Pericare explained and performed. Educated on need of 3 measured voids. Clean gown on. Mesh panties and peripad applied. Pt transferred to wheelchair and to room 216 with belongings.
[2020-01-24 03:30] VITALS: BP 98/55; PULSE 77; TEMP 98.8
--- NOTE | 2020-01-24 07:30 | NUR ---
Pt awake and sitting up in bed eating breakfast. She is awake and alert and reports she had a good night. Assessment completed.
[2020-01-24 07:37] VITALS: BP 119/56; PULSE 75; TEMP 98.3
[2020-01-24] MEDS ORDERED: IBU600 MG PO (08:42)
--- NOTE | 2020-01-24 09:34 | NUR ---
Initial visit; Patient thanked Delivery Assistant for offering congratulations and God's blessings for the of their daughter. Delivery Assistant thanked family for choosing [facility].
== END 2020-01-24 17:39 | disposition home or self-care (01) | DRG 806 ==
LOC: LDR 07:04 → OB 07:04
PROVIDERS: ADMIT Obstetrics & Gynecology
PROC: 10E0XZZ Delivery of Products of Conception, External Approach (ICD-10-PCS; principal; 2020-01-23)
PROC: 10907ZC Drainage of Amniotic Fluid, Therapeutic from Products of Conception, Via Natural or Artificial Opening (ICD-10-PCS; 2020-01-23)
PROC: 0HQ9XZZ Repair Perineum Skin, External Approach (ICD-10-PCS; 2020-01-23)
DX: O48.0 Post-term pregnancy (principal); O72.1 Other immediate postpartum hemorrhage; Z37.0 Single live birth; O99.02 Anemia complicating childbirth; D64.9 Anemia, unspecified; O69.81X0 Labor and delivery complicated by cord around neck, without compression, not applicable or unspecified; O70.0 First degree perineal laceration during delivery; Z3A.41 41 weeks gestation of pregnancy
CPT/HCPCS: J2210; J2405; J2590; J2795; J7120

== ENCOUNTER 2021-08-19 14:00 | Outpatient (CLI) | payer MEDICAID ==
[~2021-08-19] VITALS: Ht 160 cm; Wt 90.2 kg
--- NOTE | 2021-08-19 13:50 | NUR ---
PT AMBULATORY TO UNIT FROM ED. C/O MIDSTERNAL BURNING PAIN, CONSTANT WITH INTERMITTENT SHOOTING PAINS "THROUGH TO MY UPPER BACK". PT REPORTS SHE HAS BEEN TAKING ZOFRAN "AROUND THE CLOCK" FOR NAUSEA. REPORTS POSITIVE MOVEMENT. REPORTS SHE WENT TO THE [facility] YESTERDAY WITH "CONTRACTIONS" BUT ISN'T HAVING THEM TODAY ANYMORE. SVE CLOSED AT [facility] YESTERDAY. DENIES LEAKING OF FLUID. PLACED ON EFM/TOCO, CATEGORY 1 TRACING AT THIS TIME. 2 CONTRACTIONS UPON ARRIVAL, MILD, Q6MIN APART. PT STATES SHE CAN "FEEL THEM" BUT THEY DON'T HURT.
[2021-08-19] MEDS ORDERED: ZOFRAN ODT4 MG PO (14:21)
[2021-08-19] MEDS ORDERED: LEXAPRO 10MG10 MG PO (14:21)
[2021-08-19] MEDS ORDERED: NATURAL IRON65 MG (14:21)
[2021-08-19 14:30] VITALS: BP 119/58; PULSE 75; TEMP 98.8
[2021-08-19 15:30] VITALS: BP 131/64; PULSE 83
[2021-08-19 15:39] LABS: BASO % 0.3 % (0.0-2.0); EOS % 0.5 % (0.0-4.0); GRAN # 4.6 K/mm3 (1.4-6.5); GRAN % 75.4 % (42.2-75.2); HEMOGLOBIN 10.8 g/dl (12.5-16.0); LYMPH # 0.9 K/mm3 (1.2-3.4); LYMPH % 15.1 % (20.0-51.0); MEAN CELL VOLUME 87 fl (80.0-100.0); MEAN CORPUSCULAR HEMOGLOBIN 29 pg (27-31); MEAN CORPUSCULAR HGB CONC 34 g/dl (33.0-37.0); MEAN PLATELET VOLUME 10.4 fl (7.4-10.4); MONO # 0.5 K/mm3 (0.1-0.6); PLATELET COUNT 198 K/mm3 (130-400); RED BLOOD COUNT 3.72 M/mm3 (4.10-5.30); REDCELL DISTRIBUTION WIDTH-CV 14.4 % (11.5-14.5)
[2021-08-19 15:41] LABS: HEMATOCRIT 32.2 % (37.0-47.0)
[2021-08-19 15:45] LABS: COLLECTION METHOD CLEAN CATCH
[2021-08-19 15:55] LABS: ALBUMIN 3.2 gm/dL (3.5-5.0); BILIRUBIN,TOTAL 0.6 mg/dL (0.2-1.2); CALCIUM 8.6 mg/dL (8.4-10.2); CREATININE, serum 0.54 mg/dL (0.57-1.11); POTASSIUM 3.4 mmol/L (3.5-4.5); TOTAL PROTEIN 6.7 gm/dL (6.2-8.1)
[2021-08-19 16:07] LABS: MUCOUS Present (NOT PRESENT); PH 5 (5-8); URINE APPEARANCE Hazy (CLEAR/HAZY); URINE BACTERIA None Seen /hpf (NONE SEEN); URINE BILIRUBIN Negative (NEGATIVE); URINE BLOOD Negative (NEGATIVE); URINE COLOR Yellow (YELLOW); URINE GLUCOSE Negative (NEGATIVE); URINE KETONE Trace (NEGATIVE); URINE LEUKOCYTE ESTERASE 1+ (NEGATIVE); URINE NITRATE Negative (NEGATIVE); URINE PROTEIN(semi-quant) Negative (NEGATIVE); URINE RBC 0-2 /hpf (0-2); URINE UROBILINOGEN Negative (NEGATIVE)
--- NOTE | 2021-08-19 16:30 | NUR ---
ALL DC PAPERWORK REVIEWED AND UNDERSTOOD. VORB PER TO BEGIN PO PEPCID, OVER THE COUNTER DOSAGE. PT AGREEABLE TO POC. SEE PHYS NOTIFICATION. PT AMBULATORY FROM UNIT IN STABLE CONDITION.
== END 2021-08-19 16:30 | disposition home or self-care (01) ==
LOC: LDRO 14:00 → EDSTATUS 14:02 → LDRO 16:30
PROVIDERS: Obstetrics & Gynecology
DX: Z34.93 Encounter for supervision of normal pregnancy, unspecified, third trimester (principal); Z3A.33 33 weeks gestation of pregnancy

== ENCOUNTER 2021-10-03 10:16 | Inpatient (IN) | payer MEDICAID ==
[~2021-10-03] VITALS: Ht 160 cm; Wt 93.6 kg
[~2021-10-03 10:16] MED LIST changes: +LEXAPRO 10MG10 MG PO; +NATURAL IRON65 MG; +PEPCID 20MG TAB20 MG
[2021-10-08] VITALS (42 sets, daily range): BP systolic 101–140; BP diastolic 51–85; PULSE 51–76; TEMP 97.8–98.2
--- NOTE | 2021-10-08 06:35 | NUR ---
pt ambulatory to LR3 with spouse. Changed into clean gown. FHR monitor/TOCO applied. Pt denies any vaginal bleeding, leaking of fluid, regular contractions, or decreased movement. Plan of care and induction of labor discussed. pt verbalizes understanding. Call light within reach
[2021-10-08 07:57] LABS: BASO % 0.2 % (0.0-2.0); EOS % 0.6 % (0.0-4.0); GRAN # 4.3 K/mm3 (1.4-6.5); GRAN % 68.5 % (42.2-75.2); LYMPH # 1.4 K/mm3 (1.2-3.4); MEAN CELL VOLUME 88 fl (80.0-100.0); MEAN CORPUSCULAR HGB CONC 31 g/dl (33.0-37.0); MEAN PLATELET VOLUME 10.5 fl (7.4-10.4); MONO # 0.5 K/mm3 (0.1-0.6); MONO % 7.7 % (1.7-9.3); PLATELET COUNT 188 K/mm3 (130-400); RED BLOOD COUNT 3.55 M/mm3 (4.10-5.30); REDCELL DISTRIBUTION WIDTH-CV 14.3 % (11.5-14.5)
[2021-10-08 08:08] LABS: HEMATOCRIT 31.3 % (37.0-47.0); HEMOGLOBIN 9.8 g/dl (12.5-16.0); MEAN CORPUSCULAR HEMOGLOBIN 28 pg (27-31)
--- NOTE | 2021-10-08 16:00 | NUR ---
1535 sve /+[address] Mccartney called for delivery. 1545 Dr. Mccartney in room for delivery. Pt pushes with three contractions. 1550 Spontaneous vaginal delivery of viable male . bulb suctioned and stimulated. Infant to mother's abdomen. Carmina [facility] takes over care of . 1554 Spontaneous delivery of placenta. Pitocin bolus started per protocol. Fundal massage done by Dr Mccartney. Moderate amt of bleeding noted. Labial Laceration noted and repaired by Dr. Mccartney. Fundal massage done. Moderate amt of bleeding noted. Methergine ordered verbally by Dr Mccartney. Methergine given. Melody care done. Clean pad placed. Call light within reach.
--- NOTE | 2021-10-08 21:00 | NUR ---
PT'S RIGHT LEG REMAINS NUMB AT THIS TIME. ASSISTED TO WHEELCHAIR AND TO BATHROOM. PT ABLE TO VOID 300MLS WITHOUT DIFFICULTY. ASSISTED WITH PERICARE, PERIPAD AND MESH UNDERWEAR APPLIED. PT BACK TO WHEELCHAIR AND MOVED TO ROOM. PT INSTRUCTED TO CALL OUT FOR ASSISTANCE WHEN SHE IS READY TO USE THE BATHROOM, UNDERSTANDING VERBALIZED. ORIENTED TO ROOM.
[2021-10-09 03:55] VITALS: BP 119/62; PULSE 65; TEMP 97.6
[2021-10-09 07:40] VITALS: BP 104/56; PULSE 62; TEMP 98
[2021-10-09] MEDS ORDERED: IBU600 MG PO (08:30)
--- NOTE | 2021-10-09 09:32 | NUR ---
Initial visit; Parents thanked for offering congratulations for the of their son. thanked family for choosing our hospital and was pleased to hear their stay has been a good one.
[2021-10-09 13:21] VITALS: BP 118/63; PULSE 68
--- NOTE | 2021-10-09 17:41 | NUR ---
1705DISCHARGE INSTRUCTIONS REVIEWED WITH PATIENT. PATIENT VERBALIZED UNDERSTANDING. WILL NOTIFY NURSING STAFF WHEN READY TO LEAVE. 1735ALL PERSONAL BELONGINGS GATHERED FROM PATIENT ROOM. PATIENT LEFT AMBULATORY AND IN NO APPARENT DISTRESS AND ACCOMPANIED BY SPOUSE AND NURSING STAFF.
== END 2021-10-09 17:35 | disposition home or self-care (01) | DRG 807 ==
LOC: OB 10-08 06:25 → LDR 10-08 06:25 → OB 10-08 21:00
PROVIDERS: ADMIT Obstetrics & Gynecology
PROC: 10E0XZZ Delivery of Products of Conception, External Approach (ICD-10-PCS; principal; 2021-10-08)
PROC: 0UQMXZZ Repair Vulva, External Approach (ICD-10-PCS; 2021-10-08)
PROC: 3E033VJ Introduction of Other Hormone into Peripheral Vein, Percutaneous Approach (ICD-10-PCS; 2021-10-08)
DX: O48.0 Post-term pregnancy (principal); Z37.0 Single live birth; O99.344 Other mental disorders complicating childbirth; F41.9 Anxiety disorder, unspecified; F32.A Depression, unspecified; O99.02 Anemia complicating childbirth; D64.9 Anemia, unspecified; O75.89 Other specified complications of labor and delivery; Z3A.40 40 weeks gestation of pregnancy; Z23 Encounter for immunization
CPT/HCPCS: J2210; J2405; J2590; J2795; J7120

== ENCOUNTER → 2023-09-09 | Outpatient (CLI) | payer MEDICAID | LOC: DIA.ED 09:45 | DX: O24.419 Gestational diabetes mellitus in pregnancy, unspecified control (principal) | CPT/HCPCS: G0108 ==

== ENCOUNTER → 2023-11-25 | Outpatient (CLI) | payer MEDICAID | LOC: DIA.ED 11-04 07:20 | DX: O24.419 Gestational diabetes mellitus in pregnancy, unspecified control (principal); Z79.4 Long term (current) use of insulin ==